=== PATIENT | female | born 1995 | race Caucasian/White ===

== ENCOUNTER 2017-09-03 07:37 | Emergency (ER) | payer OTHER ==
[2017-09-03 07:42] VITALS: BP 126/82
[2017-09-03 12:28] LABS: Manual Entry Verification CAS0014; Rapid HIV INT CONT QC Line Present; Rapid HIV Kit Lot# H041001
--- NOTE | 2017-09-03 18:41 | ED ---
Gabe Badillo Angela, scribed for Francisco Javier Gutierrez MD on 09/03/17 at 0827 . - HPI Summary HPI Summary: This pt is a 22 y/o female presenting to [facility] c/o accidentally sticking herself with a needle today on her left second finger. 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 She states she was administering the needle to her pt who was 89 y/o and was admitted for pneumonia. Pt notes that there was no significant medical history for the pt she was injecting the needle to. Pt notes she washed the area after sticking herself with a needle. She denies any symptoms. 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 PMH/Surg Hx/FS Hx/Imm Hx Endocrine/Hematology History: Denies: Hx Diabetes, Hx Thyroid Disease Cardiovascular History: Denies: Hx Hypertension Respiratory History: Denies: Hx Asthma, Hx Chronic Obstructive Pulmonary Disease (COPD) GI History: Denies: Hx Ulcer Infectious Disease History: No Infectious Disease History: Denies: Hx Clostridium Difficile, Hx Hepatitis, Hx Human Immunodeficiency Virus (HIV), Hx of Known/Suspected MRSA, Hx Tuberculosis, Hx Known/Suspected VRE , Hx Known/Suspected VRSA, History Other Infectious Disease, Traveled Outside the [place] in Last 30 Days - Family History Known Family History: Positive: Hypertension - father Negative: Diabetes, Respiratory Disease - Social History Alcohol Use: None Substance Use Type: Reports: None Smoking Status (MU): Never Smoked Tobacco Review of Systems Negative: Fever, Chills Eyes: Negative ENT: Negative Cardiovascular: Negative Respiratory: Negative Gastrointestinal: Negative Positive: Other - needle injection on left second finger. All Other Systems Reviewed And Are Negative: Yes Physical Exam - Summary Physical Exam Summary: VITAL SIGNS: Reviewed. GENERAL: Patient is a well-developed and nourished female who is lying comfortable in the stretcher. Patient is not in any acute respiratory distress. HEAD AND FACE: No signs of trauma. No ecchymosis, hematomas or skull depressions. No sinus tenderness. EYES: PERRLA, EOMI x 2, No injected conjunctiva, no nystagmus. EARS: Hearing grossly intact. Ear canals and tympanic membranes are within normal limits. MOUTH: Oropharynx within normal limits. NECK: Supple, trachea is midline, no adenopathy, no JVD, no carotid bruit, no c- spine tenderness, neck with full ROM. CHEST: Symmetric, no tenderness at palpation LUNGS: Clear to auscultation bilaterally. No wheezing or crackles. CVS: Regular rate and rhythm, S1 and S2 present, no murmurs or gallops appreciated. ABDOMEN: Soft, non-tender. No signs of distention. No rebound no guarding, and no masses palpated. Bowel sounds are normal. EXTREMITIES: FROM in all major joints, no edema, no cyanosis or clubbing. NEURO: Alert and oriented x 3. No acute neurological deficits. Speech is normal and follows commands. SKIN: Dry and warm. Pierce of needle puncture on left second finger is clean. Triage Information Reviewed: Yes Vital Signs On Initial Exam: Initial Vitals Temp Pulse Resp BP Pulse Ox 98 F 91 18 126/82 97 09/03/17 07:39 09/03/17 07:39 09/03/17 07:39 09/03/17 07:39 09/03/17 07:39 Vital Signs Reviewed: Yes - [place] Coma Scale Coma Scale Total: 15 Diagnostics - Vital Signs Vital Signs Temp Pulse Resp BP Pulse Ox 09/03/17 07:39 98 F 91 18 126/82 97 - Laboratory Lab Results: Lab Results 09/03/17 Range/Units 08:45 Hepatitis B Antibody Nonreactive (Nonreactive) Hep Bs Antigen Nonreactive (Nonreactive) Hep Bs Antibody, Quant 4.83 (<12) mIU/mL Hepatitis C Antibody Nonreactive (Nonreactive) HIV 1&2 Antibody Rapid Nonreactive (Nonreactive) HIV 1&2 Antibody Cancelled HIV (1/O/2) Ab Index Cancelled Lab Statement: Any lab studies that have been ordered have been reviewed, and results considered in the medical decision making process. Needlestick Course/Dx - Course Assessment/Plan: This pt is a 22 y/o female presenting to [facility] c/o accidentally sticking herself with a needle today on her left second finger. 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 She states she was administering the needle to her pt who was 89 y/o and was admitted for pneumonia. Pt notes that there was no significant medical history for the pt she was injecting the needle to. Pt notes she washed the area after sticking herself with a needle. She denies any symptoms. Pt had a needle stick after she used heparin in a patient at work today. The pt doesnt have any complaints. The pt reports that she does not have any complaints or want prophylaxis. We sent blood work and she will follow up with her PCP. Pt will be discharged home with follow up from her PCP. - Diagnoses Provider Diagnoses: Needle stick injury Discharge - Discharge Plan Condition: Stable Disposition: HOME Patient Education Materials: Needle Stick Injuries (ED) Referrals: [facility] REFERRAL [Outside] No Primary Care Phys,NOPCP [Primary Care Provider] - Additional Instructions: Please follow up with your primary care provider. RETURN TO THE ED FOR ANY WORSENING SYMPTOMS. The documentation as recorded by the Gabe lane Angela accurately reflects the service I personally performed and the decisions made by me, Francisco Javier Gutierrez MD.
== END 2017-09-03 09:05 | disposition home or self-care (01) ==
LOC: ED 07:37
DX: S61.231A Puncture wound without foreign body of left index finger without damage to nail, initial encounter (principal); Z77.21 Contact with and (suspected) exposure to potentially hazardous body fluids; W46.1XXA Contact with contaminated hypodermic needle, initial encounter; Y99.0 Civilian activity done for income or pay; Y92.230 Patient room in hospital as the place of occurrence of the external cause
CPT/HCPCS: 36415; 86703; 86706; 86803; 87340; 87350; 99282